=== PATIENT | female | born 1925 | race Caucasian/White ===

== ENCOUNTER 2016-04-19 10:38 | Inpatient (IN) | payer MEDICARE ==
[~2016-04-19] VITALS: Ht 154.9 cm; Wt 65.1 kg
[~2016-04-19 10:38] MED LIST: BYSTOLIC5 MG PO; CATAPRES-DPS0.1 MG PO; COMPAZINE10 MG PO; COREG DPS3.125 MG PO; DELTASONE DPS10 MG PO; DELTASONE DPS20 MG PO; ECOTRIN81 MG PO; FEOSOL-DPS325 MG PO; FLONASE 0.05% D16 GM NS; HYDRODIURIL-DPS25 MG PO; IMDUR DPS30 MG PO; IMDUR DPS60 MG PO; IRON325 M1 PO; MAALOX DPS30 ML PO; NASACORT16.9 ML NS; NEXIUM40 MG PO; NORVASC5 MG PO; SURFAK DPS240 MG PO; SYNTHROID125 MCG PO; SYNTHROID150 MCG PO; TYLENOL #3 DPS1 TAB PO; TYLENOL DPS325 MG PO; ULTRAM DPS50 MG PO; ZANAFLEX4 MG PO; ZESTRIL DPS20 MG PO; [UNRECOGNIZED DRUG - CODE] PO
--- NOTE | 2016-04-21 09:22 | OR ---
ADMIT: 04/19/2016 RM/LOC: 522 [facility] MR#: [id number] [id number] 2620 [facility] [address] [place], [place] [address] [facility] [address] [place] [address] Operative/Delivery Room Report SEX: F AGE: 89 : 1925 SURGERY DATE: 04/21/2016 SURGEON: Kit Yang MD PREOPERATIVE DIAGNOSES: 1. Epigastric pain. 2. Nausea with vomiting. POSTOPERATIVE DIAGNOSIS: Diffuse gastritis. PROCEDURE: Esophagogastroduodenoscopy with biopsy. ANESTHESIA: IV general. DESCRIPTION OF PROCEDURE: The patient was taken to the endoscopy suite and placed left side down on her hospital cart. IV sedation was established. The upper endoscope was advanced through the oropharynx into the esophagus without difficulty. The scope was pushed under visualization of the stomach. Air was used to insufflate the stomach. The pylorus was intubated. The first and second portions of the duodenum were normal in appearance. The scope was withdrawn to the stomach. In the antrum body, extending to the fundus, there was [id number] hyperemia without ulceration. Biopsies were obtained. The gastric cardia appeared normal on retroflexion. The scope was withdrawn to the gastroesophageal junction, which was unremarkable, as was the remainder of the esophageal mucosa. The patient tolerated the procedure well and transferred to the recovery area in stable condition. Kit Yang MD/ zhou JOB #: [id number] CC: Yoni Romero DO, Attending Physician Yoni Romero DO, Family Physician
--- NOTE | 2016-04-23 13:23 | ER ---
ADMIT: 04/19/2016 RM/LOC: 522 [facility] MR#: [id number] [address] [place], [place] [address] [facility] [address] [place] [address] Emergency Room Report SEX: F AGE: 89 : 1925 DATE: 04/19/2016 ADDENDUM: This patient comes to the ER because 4 hours before coming in, she started having continuous vomiting and abdominal pain. She has had several abdominal surgeries. On physical exam, her pain is diffuse in her abdomen. IV of normal saline was started. She was just given Zofran. CT scan was negative for a bowel obstruction. When I went to re-evaluate her, she was feeling better, but feeling weak. We did get her up to see if she could walk. She does live at home by herself and she was unable to. I spoke with Dr. Romero who is on city call, and he will admit the patient. DIAGNOSES: 1. Vomiting. 2. Nausea. 3. Weakness. DASHA Agustin / Arturo Jacobo MD / zhou JOB #: [id number] CC: Yoni Romero DO, Attending Physician Yoni Romero DO, Family Physician
--- NOTE | 2016-04-24 08:52 | CO ---
ADMIT: 04/21/2016 RM/LOC: 305 [facility] MR#: [id number] [address] [address] [facility] [address] [place] [address] Consultation SEX: F AGE: 89 : 1925 DATE OF CONSULTATION: 04/23/2016 ATTENDING PHYSICIAN: Yoni Romero DO CONSULTING PHYSICIAN: Shani Mark MD REASON FOR CONSULTATION: Acute kidney injury. HISTORY OF PRESENT ILLNESS: The patient is an 89-year-old female, who was admitted to the hospital couple of days ago. She presented with 2 days worth of abdominal pain, nausea, and vomiting. She has had similar complaints for quite awhile now and had an upper GI endoscopy as an outpatient. She was taken for an EGD again during this hospitalization, was found to have diffuse gastritis. She has had ongoing GI losses. Her serum creatinine upon admission was 2.1 and was elevated to 2.8 yesterday. It is down to 2.6 today. She is receiving IV fluids. At the time of this encounter, she is accompanied by her niece and her granddaughter. She is unable to give me a history. Her daughter reports the events above. She is concerned about her nutrition and what the plan is going to be from here on. REVIEW OF SYSTEMS: Unobtainable secondary to patient's condition. PAST MEDICAL HISTORY: 1. Coronary artery disease, status post [place]. 2. Thyroid cancer. 3. Hypothyroidism. 4. Polymyalgia rheumatica. 5. GERD. 6. Arthritis. 7. TIA. MEDICATIONS: Reviewed in the chart. SOCIAL HISTORY: The patient was living independently. Family is very supportive. No ongoing tobacco, alcohol, or recreational drug use. FAMILY HISTORY: No family history of chronic kidney disease or renal replacement therapy. ALLERGIES: NO KNOWN DRUG ALLERGIES. PHYSICAL EXAMINATION: VITAL SIGNS: Temperature 98.6 degree Fahrenheit, pulse 65, blood pressure 116/38. Ins and outs over the last 24 hours have been 2947 in and 1000 out by NG and 525 mL urine output. GENERAL: She is ill-appearing. HEENT: Head is nontraumatic and normocephalic. Extraocular movements are intact. She has an NG tube in place which is draining bilious fluid. CVS: Bradycardic. S1 and S2 heard. No rubs, murmurs, or gallops. ADMIT: 04/21/2016 RM/LOC: 305 [facility] MR#: [id number] [address] [id number] [place] [address] [address] [place] [address] Consultation SEX: F AGE: 89 : 1925 CHEST: Decreased breath sounds bilaterally. ABDOMEN: Soft, distended. EXTREMITIES: No edema. SKIN: No rash or nodules. NEUROLOGIC: She is somnolent, but arousable. PSYCHIATRIC: Unable to obtain. LABORATORY DATA: Reviewed. BMP with sodium 144, potassium 4.2, CO2 of 23, creatinine 2.6 it was 2.8 yesterday and 2.1 the day before, calcium 7.6, albumin 2.1, hemoglobin 9.5, white count 6.5. Urinalysis 4 days ago was 1+ protein, negative blood, negative leukocyte esterase. She did receive IV contrast on 04/19 and then again on 04/22. Her most recent abdominal CT scan showed small bowel obstruction. ASSESSMENT/PLAN: Acute kidney injury - this is likely prerenal in etiology with a component of ischemic acute tubular necrosis and possibly contrast- induced nephropathy as well. I will check urine studies to evaluate further. I will recommend supportive care for the time being. Recommend avoiding nephrotoxins such as NSAIDs, IV contrast, or Fleets enemas. I will also start her on some TPN for nutrition. I discussed her severity of illness with her family as well as the goals of care. In her current condition, she is not a candidate for renal replacement therapy because of her age and illnesses and especially if she was to worsen clinically. I will continue to revisit these issues with her family. Depending upon her clinical course, we will provide care consistent with goals of care. Thank you for this consultation and allowing me the opportunity to participate in this patient's care. Please do not hesitate to contact me with any questions. Shani Mark MD/ zhou JOB #: [id number] CC: Yoni Romero DO, Attending Physician Yoni Romero DO, Family Physician
--- NOTE | 2016-05-22 12:06 | CO ---
ADMIT: 04/19/2016 RM/LOC: 522 [facility] MR#: [id number] [address] [address] [facility] [address] [place] [address] Consultation SEX: F AGE: 89 : 1925 DATE OF CONSULTATION: 04/20/2016 ATTENDING PHYSICIAN: Yoni Romero DO CONSULTING PHYSICIAN: Sami Valdes MD You can see full dictated consult by Vimal Carcamo. REASON FOR CONSULT: Weakness, nausea, and vomiting. HISTORY OF PRESENT ILLNESS: This patient is an 89-year-old female, who was recently admitted almost more because of weakness, nausea, and some vomiting. She had a CT scan that was otherwise negative for any signs of small bowel obstruction. When I looked at her, there maybe a little bit of evidence of gastroenteritis. Her white count 13 and hemoglobin 12.8. No significant fevers. Currently lactic acid is pending. She has a little bit of a complicated history, I remember back in I think it was 2012. She had a small bowel abscess perforation from a bone that she had swallowed and this was a couple weeks after a lap inguinal hernia. So she has had previous surgeries with a partial small bowel resection in the past. This currently does not seem like she has a bowel obstruction. She has nausea and vomiting. She says that she has been taking Tylenol but she denies taking any significant ibuprofen, aspirin, things of that. She does have a history of coronary artery disease, [place], thyroid cancer, hypothyroidism, polymyalgia rheumatica, GERD, and arthritis. The above surgery I know for sure as well as I think a lap hernia. At this point, her abdomen is soft. She complains of pain, but when I examine her, it is soft and nondistended. She does not elicit a lot of pain when I palpated. No other mass, organomegaly, or hernias. We were asked to see her for an EGD that is what the plan will be. I will be out of town in the morning when one my partners may be do this. Nothing else otherwise significant or different as far as the rest of her consult that Vimal Carcamo dictated. Sami Valdes MD/ zhou JOB #: [id number] CC: Yoni Romero DO, Attending Physician Yoni Romero DO, Family Physician
--- NOTE | 2016-05-22 12:06 | CO ---
ADMIT: 04/19/2016 RM/LOC: 522 [facility] MR#: [id number] [address] [place], [place] [address] E[facility] [address] [place] [address] Consultation SEX: F AGE: 89 : 1925 DATE OF CONSULTATION: 04/20/2016 ATTENDING PHYSICIAN: Yoni Romero DO CONSULTING PHYSICIAN: Sami Valdes MD REASON FOR CONSULTATION: Abdominal pain with nausea and vomiting. HISTORY OF PRESENT ILLNESS: Ezra is a very pleasant 89-year-old female, who has had two day onset of abdominal pain with nausea and emesis. Her abdominal pain is diffuse throughout her abdomen with exquisite tenderness at her epigastric region. She feels as though she is constipated. However, last bowel movement was yesterday and appeared to be normal at that time. She denies any fever, chills, hematemesis, dark or bloody stools, diarrhea or constipation. Interestingly enough, she was scoped for similar symptoms last month by Dr. Alonso. PAST MEDICAL HISTORY: Significant for: 1. Thyroid cancer. 2. Hypothyroidism. 3. Coronary artery disease. 4. NH. 5. Polymyalgia rheumatica. 6. GERD. 7. Arthritis. PAST SURGICAL HISTORY: 1. Previous EGD was on 02/10/2016. 2. Exploratory laparoscopy converted to laparotomy with segmental small bowel resection and primary reanastomosis on 01/10/2013. 3. Laparoscopic right inguinal hernia repair with mesh on 01/10/2013. 4. Last colonoscopy was 12/2010. ALLERGIES: NO KNOWN DRUG ALLERGIES. MEDICATIONS: Well documented in chart. FAMILY HISTORY: Noncontributory. SOCIAL HISTORY: The patient denies tobacco, alcohol, or illicit drug use. REVIEW OF SYSTEMS: The patient denies any fever, chills, or night sweats. The rest of a comprehensive 10-point review of systems was performed and all other systems are negative. PHYSICAL EXAMINATION: GENERAL: The patient is in no acute distress. However, she is ill appearing. HEENT: Head is normocephalic and atraumatic. EOMS are intact. Conjunctivae free of icterus, erythema, or pallor. Pinnae, free of deformities. Nose, ADMIT: 04/19/2016 RM/LOC: 522 [facility] MR#: [id number] [address] [address] [facility] [address] [place] [address] Consultation SEX: F AGE: 89 : 1925 midline. No tracheal deviation. NECK: Supple. SKIN: Negative for jaundice, clubbing, edema, pallor, or cyanosis. LUNGS: Normal respiratory effort. HEART: Distal pulses intact. ABDOMEN: Soft, nondistended. Exquisite tenderness in epigastric region. Diffuse tenderness throughout. ASSESSMENT: Abdominal pain with nausea and vomiting. PLAN: The plan is to have the patient undergo EGD performed by Dr. Valdes tomorrow. I discussed the risks, alternatives, benefits, and complications of endoscopy with the patient to which she is in agreement of this plan, I had all of her questions answered, and would like to proceed. I will get her on a surgery schedule, get her n.p.o. at midnight, and see how she does tomorrow. Thank for the consultation of this patient. DASHA Abad / Sami Valdes MD / zhou JOB #: [id number] CC: Yoni Romero DO, Attending Physician Yoni Romero DO, Family Physician
--- NOTE | 2016-06-02 08:25 | HP ---
ADMIT: 04/21/2016 RM/LOC: 305 [facility] MR#: [id number] 2620 [facility] [address] [place], [place] [address] [facility] [address] [place] [address] History and Physical SEX: F AGE: 89 : 1925 DATE OF SERVICE: 04/19/2016 REASON FOR HOSPITALIZATION: Gastroenteritis, dehydration. HISTORY: An 89-year-old female patient of Dr. Her presented with abdominal pain, nausea, weakness desirous of moving to senior care, history of thyroid cancer, constipation, polymyalgia rheumatica, coronary artery disease, [place], diverticulitis, diverticulosis, gastritis, and reflux. SOCIAL HISTORY: She has been living on her own. Does not smoke. FAMILY HISTORY: Noncontributory. HOME MEDICATIONS: 1. Tramadol. 2. Levothyroxine. 3. Nexium. 4. Lasix. 5. Carvedilol. 6. Fluticasone. 7. Amlodipine. For specifics of dosing, refer to her admission orders. PHYSICAL EXAMINATION: GENERAL: She awakened to report that she was "miserable." HEART: Regular. LUNGS: Clear. ABDOMEN: Tender epigastric and left upper quadrant. No nausea, vomiting. DIAGNOSTIC AND LAB DATA: CAT scan showed extensive stool. Creatinine 1.4. White count is 12.4, and hemoglobin 11.3. IMPRESSION: Gastroenteritis, dehydration, acute kidney injury, and constipation. PLAN: Admit, hold diuretic therapy, hydrate, treat nausea, add proton pump inhibitor and asked Auger Machine Offbearer to come involved. Yoni Romero DO/ modl JOB #: [id number] CC: Yoni Romero DO, Attending Physician Yoni Romero DO, Family Physician
--- NOTE | 2016-06-02 08:25 | DS ---
ADMIT: 04/21/2016 RM/LOC: 305 [facility] MR#: [id number] [address] [address] [facility] [address] [place] [address] General Discharge Summary SEX: F AGE: 89 : 1925 ADMISSION DATE: 04/21/2016 DISCHARGE DATE: 04/25/2016 REASON FOR HOSPITALIZATION: 1. Gastroenteritis. 2. Dehydration. 3. Acute kidney injury. 4. Constipation. HISTORY OF PRESENT ILLNESS: This is an 89-year-old female patient, presented with abdominal pain, nausea, weakness. She wanted to also transition to skilled nursing from her independent living. HOSPITAL COURSE: She was admitted to the hospital. Given IV hydration, nausea management, proton-pump inhibitor, Physical Therapy and Occupational Therapy evaluation, and pain control. We asked Inspection And Testing Supervisor to work with her on dismissal planning. We treated her blood pressure, and asked for Surgery consult to evaluate her abdominal pain. Upper GI endoscopy was performed and revealed gastritis. Her diet was subsequently advanced slowly and we tried to transition her to oral pain management. Her pain worsened and we suspected that she was having some ischemic bowel. She developed delirium. Her outlook became guarded. She was not an ideal surgical candidate and Surgery did follow along and then made her n.p.o. She had diffuse small bowel dilation on followup CAT scan, with a lactic acid of 3.2 on 04/22/2016. Her creatinine also mimi consistent with acute kidney injury. Dr. Mark was consulted to assist with management. We had discussions with the family about her general prognosis and outlook. We started her on TPN. On 04/25, TPN was discontinued. She became less responsive and she was noted to be unresponsive. Family decided at that point to make her comfort cares. She was placed on comfort cares. She was given ongoing supportive cares, and on 04/25/2016 at 1117 hours, we were notified that she had . FINAL DIAGNOSIS: Ischemic bowel. Yoni Romero DO/ zhou JOB #: [id number] CC: Yoni Romero DO, Attending Physician Yoni Romero DO, Family Physician
== END 2016-04-25 11:04 | disposition expired | DRG 393 ==
LOC: ER 10:38 → 5MS 13:35 → 3ICU 04-22 10:50
PROVIDERS: ADMIT Internal Medicine
PROC: 0DB68ZX Excision of Stomach, Via Natural or Artificial Opening Endoscopic, Diagnostic (ICD-10-PCS; principal; 2016-04-21)
PROC: 3E0436Z Introduction of Nutritional Substance into Central Vein, Percutaneous Approach (ICD-10-PCS; 2016-04-23)
PROC: 02HV33Z Insertion of Infusion Device into Superior Vena Cava, Percutaneous Approach (ICD-10-PCS; 2016-04-23)
DX: K55.9 Vascular disorder of intestine, unspecified (principal); J96.01 Acute respiratory failure with hypoxia; N17.9 Acute kidney failure, unspecified; E87.1 Hypo-osmolality and hyponatremia; E86.0 Dehydration; R10.13 Epigastric pain; E03.9 Hypothyroidism, unspecified; K29.70 Gastritis, unspecified, without bleeding; I25.10 Atherosclerotic heart disease of native coronary artery without angina pectoris; M35.3 Polymyalgia rheumatica; K21.9 Gastro-esophageal reflux disease without esophagitis; M19.90 Unspecified osteoarthritis, unspecified site; I25.2 Old myocardial infarction; K59.00 Constipation, unspecified; K57.90 Diverticulosis of intestine, part unspecified, without perforation or abscess without bleeding; Z66 Do not resuscitate; Z85.850 Personal history of malignant neoplasm of thyroid